=== PATIENT | female | born 1980 | race African-American/Black ===

== ENCOUNTER 2016-08-05 09:59 | Emergency (ER) | payer OTHER ==
[~2016-08-05 09:59] MED LIST: AMLO2.5T PO; BUTA1CAP29 PO; HYDR-2666 PO; IBUP-1060 PO; LIDO20SO PO; LOSA25TA4 PO; SULF1TAB24 PO
[2016-08-05 10:30] VITALS: BP 120/92
[2016-08-05] MEDS ORDERED: NAPROXEN 500 MG TABLET PO STA (10:51)
[2016-08-05] MEDS ORDERED: CYCLOBENZAPRINE 10 MG TABLET. PO ONE (11:00)
[2016-08-05] MEDS ORDERED: HYDROCODONE/APAP 5/325MG TABLET. PO ONE (11:00)
[2016-08-05] MEDS ORDERED: TRAM-29 PO (11:07)
[2016-08-05] MEDS ORDERED: METH-37 PO (11:07)
[2016-08-05] MEDS ORDERED: CLIN-44 PO (11:07)
--- NOTE | 2016-08-05 11:08 | PHYS DOC ---
Past Medical History Past Medical History: COPD, Hypertension Additional Past Medical Histor: head injury Past Surgical History: Knee Replacement Additional Past Surgical Histo: bilat knee scope Alcohol Use: Occasionally Drug Use: None Adult General Chief Complaint Chief Complaint: LOWER EXT PAIN HPI HPI Patient is a 36 year old female with history of COPD and hypertension who presents today with pain radiating to the right lower extremity. Patient states the pain starts from the mid thigh into the toes. Patient denies any known injury. Denies any history of sciatica she is a very poor historian, i could barely understand why she came to the ED because she keeps jumping from one idea to the other, she appears intoxicated. She is a states she has moderate right knee pain. Patient denies any known injury. Patient is also complaining of gum swelling or redness from unknown amount of days. Patient appears intoxicated. She is requesting pain medicine and states she does not want any testing. Review of Systems Review of Systems Constitutional: Denies fever or chills [] Eyes: Denies change in visual acuity, redness, or eye pain [] HENT: Right upper gum swelling Respiratory: Denies cough or shortness of breath [] Cardiovascular: No additional information not addressed in HPI [] GI: Denies abdominal pain, nausea, vomiting, bloody stools or diarrhea [] : Denies dysuria or hematuria [] Musculoskeletal: Right knee and right lower extremity pain Integument: Denies rash or skin lesions [] Neurologic: Denies headache, focal weakness or sensory changes [] Endocrine: Denies polyuria or polydipsia [] Current Medications Current Medications Current Medications Medications (Trade) Dose Ordered Sig/[facility] Start Time Stop Time Status Last Admin Dose Admin Acetaminophen/ Hydrocodone Bitart (Lortab 5/325) 2 tab 1X ONCE 08/05/16 11:00 08/05/16 11:01 UNV Cyclobenzaprine HCl (Flexeril) 10 mg 1X ONCE 08/05/16 11:00 08/05/16 11:01 UNV Naproxen (Naprosyn) 500 mg 1X STAT 08/05/16 10:51 08/05/16 10:52 UNV Allergies Allergies Allergies Coded Allergies Type Severity Reaction Last Updated Verified Penicillins Adverse Reaction Intermediate nausea 04/26/14 Yes Physical Exam Physical Exam Constitutional: Well developed, well nourished, no acute distress, non-toxic appearance. [] HENT: Normocephalic, atraumatic, bilateral external ears normal, oropharynx moist, no oral exudates, nose normal. [] Right upper gum approximately at tooth #2-4 with a tiny indurated area consistent with a dental abscess. The area is erythematous and very tender to palpate. Eyes: PERRLA, EOMI, conjunctiva normal, no discharge. [] Neck: Normal range of motion, no tenderness, supple, no stridor. [] Cardiovascular:Heart rate regular rhythm, no murmur [] Lungs & Thorax: Bilateral breath sounds clear to auscultation [] Abdomen: Bowel sounds normal, soft, no tenderness, no masses, no pulsatile masses. [] Skin: Warm, dry, no erythema, no rash. [] Back: No tenderness, no CVA tenderness. [] Extremities: Right lower extremity with no obvious edema and obvious ecchymosis. She is diffusely tender from the mid thigh to her toes. Positive right leg straight raises. +2 right pedal pulse. Cap refill is less than 2 seconds the right lower extremity. Full range of motion to the right knee, negative Jaylene sign and negative Denis's sign negative anterior-posterior drawer sign to the right knee. Neurologic: Alert and oriented X 3, normal motor function, normal sensory function, no focal deficits noted. [] Psychologic: Affect normal, judgement normal, mood normal. [] EKG EKG [] Radiology/Procedures Radiology/Procedures [] Course & Med Decision Making Course & Med Decision Making Pertinent Labs and Imaging studies reviewed. (See chart for details) This is a very poor historian who presents to the ED for dental abscess, right lower extremity pain consistent with sciatica. She also has right knee pain. No known injury. Offered patient radiologist studies for her knee. Patient appears intoxicated and said no. She would like something for pain. I discharged her with Ultram, Robaxin and clindamycin for the dental infection. F/u with her PCP and dentist next week. Dragon Disclaimer Dragon Disclaimer This electronic medical record was generated, in whole or in part, using a voice recognition dictation system. Departure Departure Impression: Primary Impression: Knee pain, right Additional Impressions: Sciatic leg pain Dental abscess Disposition: 01 HOME, SELF-CARE Condition: STABLE Referrals: NO PCP (PCP) Follow-up with your own primary care doctor or dentist as soon as possible. Patient Instructions: Dental Abscess, Knee Pain, Sciatica Additional Instructions: You were seen for dental abscess, right knee, sciatic pain, and a dental abscess. Complete your antibiotics. Take the prescribed medicines as needed for pain. Follow-up with your own doctor or dentist as soon as possible. Scripts Clindamycin Hcl 150 Mg Capsule3 Cap PO TID #90 CAP Prov:CYNTHIA THOMPSON APRN 08/05/16 Tramadol Hcl (Ultram)50 Mg Tablet1 Tab PO Q6HRS #30 TAB Prov:CYNTHIA THOMPSON APRN 08/05/16 Methocarbamol (Robaxin)500 Mg Tablet1 Tab PO TID #30 TAB Prov:CYNTHIA THOMPSON APRN 08/05/16 Problem Qualifiers Primary Impression: Knee pain, right Chronicity: acute Qualified Code: M25.561 - Pain in right knee CYNTHIA THOMPSON APRN Aug 05, 2016 11:08
== END 2016-08-05 11:54 | disposition home or self-care (01) ==
LOC: ER 09:59
DX: M54.30 Sciatica, unspecified side (principal); K04.7 Periapical abscess without sinus; J44.9 Chronic obstructive pulmonary disease, unspecified; I10 Essential (primary) hypertension; Z96.659 Presence of unspecified artificial knee joint; Z88.0 Allergy status to penicillin
CPT/HCPCS: 99284

== ENCOUNTER 2017-10-08 11:59 | Emergency (ER) | payer OTHER ==
[2017-10-08] MEDS: IBUPROFEN 600 MG TABLET. PO (12:42)
== END 2017-10-08 12:45 | disposition home or self-care (01) ==
LOC: ER 11:59
DX: K04.7 Periapical abscess without sinus (principal); J44.9 Chronic obstructive pulmonary disease, unspecified; I10 Essential (primary) hypertension; Z88.0 Allergy status to penicillin
CPT/HCPCS: 99283

== ENCOUNTER 2018-04-27 13:44 | Emergency (ER) | payer OTHER ==
[~2018-04-27] VITALS: Ht 160 cm; Wt 74.4 kg
[~2018-04-27 13:44] MED LIST changes: -AMLO2.5T PO; +AMLO2.5T3 PO; +CLIN150C14 PO; +CLIN300C8 PO; -HYDR-2666 PO; +HYDR-2758 PO; -LOSA25TA4 PO; +LOSA25TA5 PO; +METH-37 PO; +NAPR-683 PO; +TRAM-48 PO
[2018-04-27 14:10] VITALS: BP 123/78
[2018-04-27] MEDS ORDERED: LIDOCAINE WITH 8.4% SOD BICARB 3 ML DISP.SYRIN. INJ ONE (14:30)
[2018-04-27] MEDS ORDERED: DIPHTH,PERTUSS(ACELL),TET TOX 0.5 ML DISP.SYRIN. VAX IM ONE (14:30)
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
[2018-04-27] MEDS ORDERED: CEPH500T PO (15:04)
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
== END 2018-04-27 15:30 | disposition home or self-care (01) ==
LOC: ER 13:44
DX: S51.811A Laceration without foreign body of right forearm, initial encounter (principal); S61.511A Laceration without foreign body of right wrist, initial encounter; I10 Essential (primary) hypertension; J44.9 Chronic obstructive pulmonary disease, unspecified; Z88.0 Allergy status to penicillin; W26.8XXA Contact with other sharp object(s), not elsewhere classified, initial encounter; Y93.89 Activity, other specified; Y92.89 Other specified places as the place of occurrence of the external cause; Y99.8 Other external cause status
CPT/HCPCS: 12002; 73090; 90471; 90715; 99284

== ENCOUNTER 2018-05-07 21:36 | Emergency (ER) | payer OTHER ==
[~2018-05-07] VITALS: Ht 165.1 cm; Wt 74.4 kg
[~2018-05-07 21:36] MED LIST changes: +CEPH500T PO
[2018-05-07] MEDS ORDERED: IV NORMAL SALINE 1000ML BAG 1,000 ML IV ONE (22:15)
[2018-05-07] MEDS: IPRATRPIUM/ALBUTEROL 0.5/2.5MG 3 ML NEBU. NEB ONE (22:37)
[2018-05-07] MEDS: DEXAMETHASONE SOD PHOS 20 MG/5 ML VIAL. IV ONE (22:49)
[2018-05-07] MEDS: BENZONATATE 100 MG CAPSULE. PO ONE (22:49)
[2018-05-07] MEDS: KETOROLAC 30 MG/ML VIAL. IV ONE (22:49)
[2018-05-07] MEDS: ONDANSETRON PF 4 MG/2 ML VIAL. IV ONE (22:49)
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
[2018-05-07 23:29] LABS: BASO % 1 % (0-3); EOS # 0.1 x10^3/uL (0.0-0.7); EOS % 2 % (0-3); HEMATOCRIT 40.3 % (36.0-47.0); LYMPH # 1.1 x10^3/uL (1.0-4.8); LYMPH % 24 % (24-48); MEAN CORPUSCULAR HEMOGLOBIN 36 pg (25-35); MEAN CORPUSCULAR HGB CONC 35 g/dL (31-37); MEAN CORPUSCULAR VOLUME 105 fL (79-100); MONO # 0.5 x10^3/uL (0.0-1.1); MONO % 12 % (0-9); NEUT # 2.8 x10^3uL (1.8-7.7); NEUT % 62 % (31-73); PLATELET COUNT 188 x10^3/uL (140-400); RED BLOOD COUNT 3.86 x10^6/uL (3.50-5.40); RED CELL DISTRIBUTION WIDTH 13.6 % (11.5-14.5); WHITE BLOOD COUNT 4.5 x10^3/uL (4.0-11.0)
[2018-05-07 23:39] LABS: CALCIUM 9.1 mg/dL (8.5-10.1); CREATININE 0.7 mg/dL (0.6-1.0); GFR 113.9; POTASSIUM 4.1 mmol/L (3.5-5.1)
[2018-05-07 23:45] LABS: ALBUMIN 3.3 g/dL (3.4-5.0); ALBUMIN/GLOBULIN RATIO 0.9 (1.0-1.7); C-REACTIVE PROTEIN 4.6 mg/L (0-3.3); TOTAL BILIRUBIN 0.3 mg/dL (0.2-1.0); TOTAL PROTEIN 7.1 g/dL (6.4-8.2)
[2018-05-08] VITALS: BP 135/98
[2018-05-08 00:25] LABS: BILIRUBIN,URINE NEGATIVE (NEG); CLARITY,URINE CLEAR; COLOR,URINE YELLOW; NITRITE,URINE NEGATIVE (NEG); PROTEIN,URINE NEGATIVE (NEG-TRACE)
[2018-05-08 00:32] LABS: BACTERIA,URINE 0 /HPF (0-FEW); SQUAMOUS EPITHELIAL CELL,UR MOD /LPF; WBC,URINE OCC /HPF (0-4)
[2018-05-08 00:35] LABS: BARBITURATES NEG (NEG); BENZODIAZEPINES POS (NEG); CANNABINOIDS NEG (NEG); COCAINE POS (NEG); METHADONE NEG (NEG); OPIATES NEG (NEG); PHENCYCLIDINE POS (NEG)
[2018-05-08 00:38] LABS: AMPHETAMINE/METHAMPHETAMINE NEG (NEG)
[2018-05-08] MEDS ORDERED: CYCL10TA2 PO (00:51)
[2018-05-08] MEDS ORDERED: BENZ100C PO (00:51)
[2018-05-08] MEDS ORDERED: DICL50TA4 PO (00:51)
[2018-05-08] MEDS ORDERED: VENTOLIN HFA18 GM INH (00:51)
[2018-05-08] MEDS ORDERED: PRED50TA PO (00:51)
--- NOTE | 2018-05-08 07:47 | RAD ---
Lumbar spine, 3 views, 05/08/2018: HISTORY: Low back pain The lumbar vertebral heights are well-maintained. There are minimal scattered marginal spurs. There are mild sclerotic changes involving facet joints in the lower lumbar spine, particularly on the right at L4-5. No fracture or dislocation is identified. The paraspinous soft tissues are unremarkable. Surgical clips are noted in the right lower quadrant of the abdomen. IMPRESSION: 1. Mild degenerative change. 2. No acute bony abnormality is detected. Electronically signed by: Devendra Guerrier MD (05/08/2018 7:44 AM) [facility]
--- NOTE | 2018-05-08 07:48 | RAD ---
AP chest, 05/08/2018: HISTORY: Cough The heart size is normal. The lungs are clear. There is no evidence of pleural fluid. IMPRESSION: No acute cardiopulmonary abnormality is detected. Electronically signed by: Devendra Guerrier MD (05/08/2018 7:44 AM) [facility]
== END 2018-05-08 02:00 | disposition home or self-care (01) ==
LOC: ER 21:36
DX: J40 Bronchitis, not specified as acute or chronic (principal); M54.41 Lumbago with sciatica, right side; F17.200 Nicotine dependence, unspecified, uncomplicated; I10 Essential (primary) hypertension; J44.9 Chronic obstructive pulmonary disease, unspecified; F10.20 Alcohol dependence, uncomplicated; Z88.0 Allergy status to penicillin
CPT/HCPCS: 36415; 71045; 72100; 80053; 80307; 81001; 81025; 85025; 85651; 86140; 94640; 96374; 96375; 99285; G0480; J1100; J1885; J2405; J7620; G0479

== ENCOUNTER 2018-09-18 07:45 | Emergency (ER) | payer SELFPAY ==
[~2018-09-18] VITALS: Ht 160 cm; Wt 74.4 kg
[~2018-09-18 07:45] MED LIST changes: -AMLO2.5T3 PO; +AMLO2.5T5 PO; +BENZ100C PO; +CYCL10TA2 PO; +DICL50TA4 PO; -HYDR-2758 PO; +HYDR-2761 PO; -LOSA25TA5 PO; +LOSA25TA54 PO; +PRED50TA PO; +VENTOLIN HFA18 GM INH
--- NOTE | 2018-09-18 08:07 | PHYS DOC ---
Past Medical History Past Medical History: COPD, Hypertension Additional Past Medical Histor: head injury; drug use Past Surgical History: Knee Replacement Additional Past Surgical Histo: bilat knee scope Alcohol Use: Heavy Drug Use: Cocaine Adult General Chief Complaint Chief Complaint: MULTIPLE COMPLAINTS HPI HPI 38-year-old female presenting to the emergency department today with cough and toothache. Her cough is been present for 2-3 days. it is a nonproductive hacking cough. She has had a toothache for many months. It is in her right upper tooth. She denies tongue swelling drooling or difficulty breathing. She denies unilateral leg swelling hemoptysis or history of blood clot. Review of systems is negative for chest pain abdominal pain nausea vomiting diaphoresis fevers or chills. All other review of systems is negative unless otherwise noted in history of present illness. ED course: 38-year-old female presenting to the emergency department today with cough and toothache. Patient is well-appearing on examination here. Vitals unremarkable. Workup here is unremarkable. EKG obtained and reviewed by myself shows sinus rhythm with a regular rate. ST segments congruent. Not suggestive of ACS. We will give her oral clindamycin for her dental pain and refer her to a dentist. We will also refer her to her primary care physician for further treatment and care within 1-2 days.The patient has been examined and was not found to have an emergency medical condition. The patient was then discharged home in stable condition to follow up with their primary care physician over the next 1-2 days. They were to return if their symptoms worsened or if they were concerned for any reason. They were also instructed to return to the emergency department if they were unable to get the recommended and appropriate follow-up. [id number] discharge instructions and return precautions were given. Patient's questions were answered to their satisfaction. Patient is comfortable with plan. Review of Systems Review of Systems SEE ABOVE. Current Medications Current Medications Current Medications Medications (Trade) Dose Ordered Sig/Michael Start Time Stop Time Status Last Admin Dose Admin Albuterol/ Ipratropium (Duoneb) 3 ml 1X ONCE 09/18/18 08:15 09/18/18 08:16 DC Allergies Allergies Allergies Coded Allergies Type Severity Reaction Last Updated Verified Penicillins Adverse Reaction Intermediate nausea 04/26/14 Yes Physical Exam Physical Exam SEE ABOVE Constitutional: Well developed, well nourished, no acute distress, non-toxic appearance. HENT: Normocephalic, atraumatic, bilateral external ears normal, oropharynx moist, no oral exudates, nose normal. Pt has poor dentition without abscess. Eyes: PERRLA, EOMI, conjunctiva normal, no discharge. Neck: Normal range of motion, no tenderness, supple, no stridor. Cardiovascular:Heart rate regular rhythm, no murmur Lungs & Thorax: Bilateral breath sounds clear to auscultation . no Abdomen: Bowel sounds normal, soft, no tenderness, no masses, no pulsatile masses. Skin: Warm, dry, no erythema, no rash. [] Back: No tenderness, no CVA tenderness. Extremities: No tenderness, no cyanosis, no clubbing, ROM intact, no edema. [] Neurologic: Alert and oriented X 3, normal motor function, normal sensory function, no focal deficits noted. Psychologic: Affect normal, judgement normal, mood normal. [] Current Patient Data Vital Signs Vital Signs Date Time Temp Pulse Resp B/P (MAP) Pulse Ox O2 Delivery O2 Flow Rate FiO2 09/18/18 09:00 73 19 132/63 (86) 99 Room Air 09/18/18 07:50 98.7 98.7 Lab Values Laboratory Tests Test 09/18/18 08:27 09/18/18 09:00 09/18/18 09:04 White Blood Count 5.1 x10^3/uL (4.0-11.0) Red Blood Count 4.02 x10^6/uL (3.50-5.40) Hemoglobin 13.4 g/dL (12.0-15.5) Hematocrit 40.3 % (36.0-47.0) Mean Corpuscular Volume 100 fL (79-100) Mean Corpuscular Hemoglobin 33 pg (25-35) Mean Corpuscular Hemoglobin Concent 33 g/dL (31-37) Red Cell Distribution Width 13.9 % (11.5-14.5) Platelet Count 228 x10^3/uL (140-400) Neutrophils (%) (Auto) 59 % (31-73) Lymphocytes (%) (Auto) 27 % (24-48) Monocytes (%) (Auto) 9 % (0-9) Eosinophils (%) (Auto) 4 % (0-3) H Basophils (%) (Auto) 1 % (0-3) Neutrophils # (Auto) 3.0 x10^3uL (1.8-7.7) Lymphocytes # (Auto) 1.4 x10^3/uL (1.0-4.8) Monocytes # (Auto) 0.5 x10^3/uL (0.0-1.1) Eosinophils # (Auto) 0.2 x10^3/uL (0.0-0.7) Basophils # (Auto) 0.0 x10^3/uL (0.0-0.2) Sodium Level 137 mmol/L (136-145) Potassium Level 4.0 mmol/L (3.5-5.1) Chloride Level 103 mmol/L (98-107) Carbon Dioxide Level 24 mmol/L (21-32) Anion Gap 10 (6-14) Blood Urea Nitrogen 12 mg/dL (7-20) Creatinine 0.7 mg/dL (0.6-1.0) Estimated GFR (Cockcroft-Gault) 113.3 BUN/Creatinine Ratio 17 (6-20) Glucose Level 106 mg/dL (70-99) H Calcium Level 9.1 mg/dL (8.5-10.1) Total Bilirubin 0.5 mg/dL (0.2-1.0) Aspartate Amino Transferase (AST) 14 U/L (15-37) L Alanine Aminotransferase (ALT) 19 U/L (14-59) Alkaline Phosphatase 62 U/L (46-116) Troponin I Quantitative < 0.017 ng/mL (0.000-0.055) Total Protein 7.1 g/dL (6.4-8.2) Albumin 3.6 g/dL (3.4-5.0) Albumin/Globulin Ratio 1.0 (1.0-1.7) Lipase 121 U/L (73-393) Serum Test, Qualitative Negative (NEG) Urine Collection Type Unknown Urine Color Yellow Urine Clarity Clear Urine pH 6.5 Urine Specific [place] 1.020 Urine Protein Negative mg/dL (NEG-TRACE) Urine Glucose (UA) Negative mg/dL (NEG) Urine Ketones (Stick) Negative mg/dL (NEG) Urine Blood Negative (NEG) Urine Nitrite Negative (NEG) Urine Bilirubin Negative (NEG) Urine Urobilinogen Dipstick 0.2 mg/dL (0.2 mg/dL) Urine Leukocyte Esterase Negative (NEG) Urine RBC 1-2 /HPF (0-2) Urine WBC Occ /HPF (0-4) Urine Squamous Epithelial Cells Mod /LPF Urine Bacteria 0 /HPF (0-FEW) Urine Mucus Mod /LPF POC Urine HCG, Qualitative Hcg negative (Negative) Laboratory Tests 09/18/18 08:27 Laboratory Tests 09/18/18 08:27 EKG EKG [] Radiology/Procedures Radiology/Procedures [] Course & Med Decision Making Course & Med Decision Making Pertinent Labs and Imaging studies reviewed. (See chart for details) [] Dragon Disclaimer Dragon Disclaimer This electronic medical record was generated, in whole or in part, using a voice recognition dictation system. Departure Departure Impression: Primary Impression: Cough Additional Impression: Drug-seeking behavior Disposition: HOME, SELF-CARE Condition: STABLE Referrals: NO PCP (PCP) Patient Instructions: Cough, Adult Additional Instructions: Thank you for allowing us to participate in your care today. Return to the emergency department you have any new or worsening symptoms, or if you are concerned for any reason. Return to emergency department if you have any new or concerning symptoms including but not limited to fever, chills, nausea, vomiting, intractable pain, any new rashes, chest pain, shortness of air , uncontrolled bleeding, difficulty breathing, and/or vision loss. Follow up with your primary care physician within 1-2 days. Call your Primary Doctor tomorrow and inform them of your visit today. If you do not have a primary care provider we are happy to provide you with a list of our primary care providers contact information. This condition should be evaluated by your primary care physician and any recommended consulting services for continued management within 2 days after discharge. If at any time, you are having difficulty getting into your primary care doctor or a specialist, return to the emergency department. Scripts Clindamycin Hcl (CLINDAMYCIN HCL) 300 Mg Capsule 1 CAP PO TID, #21 CAP Prov: YASMEEN VARNER MD 09/18/18 Problem Qualifiers YASMEEN VARNER MD Sep 18, 2018 08:07
[2018-09-18] MEDS ORDERED: IPRATRPIUM/ALBUTEROL 0.5/2.5MG 3 ML NEBU. NEB ONE (08:15)
[2018-09-18 08:45] LABS: BASO % 1 % (0-3); EOS # 0.2 x10^3/uL (0.0-0.7); EOS % 4 % (0-3); HEMATOCRIT 40.3 % (36.0-47.0); HEMOGLOBIN 13.4 g/dL (12.0-15.5); LYMPH # 1.4 x10^3/uL (1.0-4.8); LYMPH % 27 % (24-48); MEAN CORPUSCULAR HEMOGLOBIN 33 pg (25-35); MEAN CORPUSCULAR HGB CONC 33 g/dL (31-37); MEAN CORPUSCULAR VOLUME 100 fL (79-100); MONO # 0.5 x10^3/uL (0.0-1.1); MONO % 9 % (0-9); NEUT % 59 % (31-73); PLATELET COUNT 228 x10^3/uL (140-400); RED BLOOD COUNT 4.02 x10^6/uL (3.50-5.40); RED CELL DISTRIBUTION WIDTH 13.9 % (11.5-14.5); WHITE BLOOD COUNT 5.1 x10^3/uL (4.0-11.0)
[2018-09-18 09:12] LABS: CALCIUM 9.1 mg/dL (8.5-10.1); CREATININE 0.7 mg/dL (0.6-1.0); GFR 113.3
[2018-09-18 09:17] LABS: BILIRUBIN,URINE NEGATIVE (NEG); CLARITY,URINE CLEAR; COLOR,URINE YELLOW; NITRITE,URINE NEGATIVE (NEG); PH,URINE 6.5; PROTEIN,URINE NEGATIVE (NEG-TRACE); UROBILINOGEN,URINE 0.2 mg/dL (0.2 mg/dL)
[2018-09-18 09:18] LABS: ALBUMIN 3.6 g/dL (3.4-5.0); TOTAL BILIRUBIN 0.5 mg/dL (0.2-1.0); TOTAL PROTEIN 7.1 g/dL (6.4-8.2)
[2018-09-18 09:21] LABS: PREG TEST PT QUAL NEGATIVE (NEG)
--- NOTE | 2018-09-18 09:31 | RAD ---
EXAM: Chest, 2 views. HISTORY: Cough. COMPARISON: 05/08/2018 FINDINGS: 2 views of the chest are obtained. There is no infiltrate, pleural effusion or pneumothorax. The heart is normal in size. IMPRESSION: No acute pulmonary finding. Electronically signed by: Claudia Nation MD (09/18/2018 9:28 AM) [facility]
[2018-09-18 09:36] LABS: BACTERIA,URINE 0 /HPF (0-FEW); SQUAMOUS EPITHELIAL CELL,UR MOD /LPF
[2018-09-18 09:37] LABS: WBC,URINE OCC /HPF (0-4)
[2018-09-18] MEDS ORDERED: CLIN300C8 PO (09:54)
[2018-09-18 10:00] VITALS: BP 130/89
--- NOTE | 2018-09-21 14:04 | EKG ---
[facility] [address] [place] [address] Test Date: 2018-09-18 Test Time: 08:35:19 Pat Name: HERBIE DIOR Department: Room: Gender: [employer]ing [employer] Operator: : 1980 Requested By: YASMEEN VARNER Order Number: [id number] Reading MD: Brad Nevarez Measurements Intervals [place] Rate: P: AR: QRS: QRSD: T: QT: QTc: Interpretive Statements SINUS RHYTHM NON SPECIFIC ST/T CHANGES Electronically Signed On 09-23-2018 8:41:03 [employer] by Brad Nevarez
== END 2018-09-18 10:30 | disposition home or self-care (01) ==
LOC: ER 07:45
DX: R05 Cough (principal); Z76.5 Malingerer [conscious simulation]; K08.89 Other specified disorders of teeth and supporting structures; J44.9 Chronic obstructive pulmonary disease, unspecified; I10 Essential (primary) hypertension; F10.20 Alcohol dependence, uncomplicated; Y90.9 Presence of alcohol in blood, level not specified; Z96.653 Presence of artificial knee joint, bilateral
CPT/HCPCS: 36415; 71046; 80053; 81001; 81025; 83690; 84484; 84703; 85025; 93005; 94640; 99284-25

== ENCOUNTER 2019-02-03 11:01 | Emergency (ER) | payer OTHER ==
[~2019-02-03] VITALS: Ht 160 cm; Wt 81.2 kg
[2019-02-03 11:25] VITALS: BP 132/87
[2019-02-03] MEDS ORDERED: CYCL10TA2 PO (12:18)
--- NOTE | 2019-02-03 12:18 | PHYS DOC ---
Past Medical History Past Medical History: Asthma, Bronchitis, COPD, Hypertension Additional Past Medical Histor: head injury; drug use, sciatica Past Surgical History: Appendectomy, Knee Replacement Additional Past Surgical Histo: bilat knee scope Alcohol Use: Heavy Drug Use: Benzodiazepine, Cocaine, Opiates, Phencyclidine Adult General Chief Complaint Chief Complaint: HIP PAIN HPI HPI Patient is a 38 year old female presents with back pain has been ongoing for week. The patient states a week ago she was lifting boxes. The pain also shoots down the right leg. Has a history of sciatica. Rates her 10 his pain is 10 out of 10 in severity. Not tried any interventions at home. Review of Systems Review of Systems Constitutional: Denies fever or chills [] Eyes: Denies change in visual acuity, redness, or eye pain [] HENT: Denies nasal congestion or sore throat [] Respiratory: Denies cough or shortness of breath [] Cardiovascular: No additional information not addressed in HPI [] GI: Denies abdominal pain, nausea, vomiting, bloody stools or diarrhea [] : Denies dysuria or hematuria [] Musculoskeletal: Reports back pain or joint pain [] Integument: Denies rash or skin lesions [] Neurologic: Denies headache, focal weakness or sensory changes [] Endocrine: Denies polyuria or polydipsia [] Complete systems were reviewed and found to be within normal limits, except as documented in this note. Current Medications Current Medications Current Medications Medications (Trade) Dose Ordered Sig/Michael Start Time Stop Time Status Last Admin Dose Admin Cyclobenzaprine HCl (Flexeril) 10 mg 1X ONCE 02/03/19 12:30 02/03/19 12:31 DC 02/03/19 12:29 10 MG Ketorolac Tromethamine (Toradol 30mg Vial) 30 mg 1X ONCE 02/03/19 12:30 02/03/19 12:31 DC 02/03/19 12:29 30 MG Allergies Allergies Allergies Coded Allergies Type Severity Reaction Last Updated Verified Penicillins Adverse Reaction Intermediate nausea 04/26/14 Yes Physical Exam Physical Exam Constitutional: Well developed, well nourished, no acute distress, non-toxic appearance. [] HENT: Normocephalic, atraumatic, bilateral external ears normal, oropharynx moist, no oral exudates, nose normal. [] Eyes: PERRLA, EOMI, conjunctiva normal, no discharge. [] Neck: Normal range of motion, no tenderness, supple, no stridor. [] Cardiovascular:Heart rate regular rhythm, no murmur [] Lungs & Thorax: Bilateral breath sounds clear to auscultation [] Abdomen: Bowel sounds normal, soft, no tenderness, no masses, no pulsatile masses. [] Skin: Warm, dry, no erythema, no rash. [] Back: Tenderness to left lower back, no spinal tenderness, no CVA tenderness. [] Extremities: No tenderness, no cyanosis, no clubbing, ROM intact, no edema. [] Neurologic: Alert and oriented X 3, normal motor function, normal sensory function, no focal deficits noted. [] Psychologic: Affect normal, judgement normal, mood normal. [] Current Patient Data Vital Signs Vital Signs Date Time Temp Pulse Resp B/P (MAP) Pulse Ox O2 Delivery O2 Flow Rate FiO2 02/03/19 11:25 98.4 91 18 132/87 (102) 98 Room Air 98.4 Lab Values Laboratory Tests Test 02/03/19 12:30 Urine Collection Type Unknown Urine Color Anali Urine Clarity Clear Urine pH 6.0 Urine Specific [place] >=1.030 Urine Protein Negative mg/dL (NEG-TRACE) Urine Glucose (UA) Negative mg/dL (NEG) Urine Ketones (Stick) Trace mg/dL (NEG) Urine Blood Negative (NEG) Urine Nitrite Negative (NEG) Urine Bilirubin Small (NEG) Urine Urobilinogen Dipstick 1.0 mg/dL (0.2 mg/dL) Urine Leukocyte Esterase Moderate (NEG) Urine RBC 3-5 /HPF (0-2) Urine WBC 5-10 /HPF (0-4) Urine Squamous Epithelial Cells Mod /LPF Urine Bacteria Few /HPF (0-FEW) EKG EKG [] Radiology/Procedures Radiology/Procedures [] Course & Med Decision Making Course & Med Decision Making Pertinent Labs and Imaging studies reviewed. (See chart for details) Patient request UA to rule out UTI. Will order UA and Flexeril/Toradol. Appears to be sciatica. Urine shows UTI will also place on Keflex. Dragon Disclaimer Dragon Disclaimer This electronic medical record was generated, in whole or in part, using a voice recognition dictation system. Departure Departure Impression: Primary Impression: Sciatica Additional Impression: Urinary tract infection Disposition: 01 HOME, SELF-CARE Condition: STABLE Referrals: NO PCP (PCP) Patient Instructions: Sciatica, Urinary Tract Infection Additional Instructions: Thank you for visiting [facility]. We appreciate you trusting us with your care. If any additional problems come up don't hesitate to return to visit us. Please follow up with your primary care provider so they can plan additional care if needed and know about the problem that you had. If symptoms worsen come back to the Emergency Department. Any concerning symptoms that start such as chest pain, shortness of Air, weakness or numbness on one side of the body, running high fevers or any other concerning symptoms return to the ER. Scripts Cephalexin (KEFLEX) 500 Mg Capsule 1 CAP PO BID for 7 Days, #14 CAP Prov: EDSON MENSAH APRN 02/03/19 Cyclobenzaprine Hcl (CYCLOBENZAPRINE HCL) 10 Mg Tablet 1 TAB PO TID PRN for MUSCLE SPASMS, #30 TAB Prov: EDSON MENSAH APRN 02/03/19 Problem Qualifiers Primary Impression: Sciatica Laterality: right Qualified Codes: M54.31 - Sciatica, right side Additional Impression: Urinary tract infection Urinary tract infection type: acute cystitis Hematuria presence: without hematuria Qualified Codes: N30.00 - Acute cystitis without hematuria EDSON MENSAH APRN Feb 03, 2019 12:18
[2019-02-03] MEDS ORDERED: KETOROLAC 30 MG/ML VIAL. IM ONE (12:30)
[2019-02-03] MEDS ORDERED: CYCLOBENZAPRINE 10 MG TABLET. PO ONE (12:30)
[2019-02-03 12:46] LABS: BILIRUBIN,URINE SMALL (NEG); CLARITY,URINE CLEAR; COLOR,URINE AMBER; NITRITE,URINE NEGATIVE (NEG); PROTEIN,URINE NEGATIVE (NEG-TRACE)
[2019-02-03 13:27] LABS: SQUAMOUS EPITHELIAL CELL,UR MOD /LPF
[2019-02-03 13:31] LABS: BACTERIA,URINE FEW /HPF (0-FEW)
[2019-02-03] MEDS ORDERED: CEPH-264 PO (13:34)
[2019-02-03 13:35] LABS: RBC,URINE 0 /HPF (0-2)
== END 2019-02-03 13:45 | disposition home or self-care (01) ==
LOC: ER 11:01
DX: N30.00 Acute cystitis without hematuria (principal); M54.41 Lumbago with sciatica, right side; J44.9 Chronic obstructive pulmonary disease, unspecified; I10 Essential (primary) hypertension; Z90.89 Acquired absence of other organs; Z96.653 Presence of artificial knee joint, bilateral; F10.20 Alcohol dependence, uncomplicated; Y90.9 Presence of alcohol in blood, level not specified; Z88.0 Allergy status to penicillin
CPT/HCPCS: 81001; 87086; 96372; 99284; J1885

== ENCOUNTER 2019-04-13 10:59 | Emergency (ER) | payer OTHER ==
[~2019-04-13] VITALS: Ht 172.7 cm; Wt 81.2 kg
[~2019-04-13 10:59] MED LIST changes: +CEPH-264 PO
[2019-04-13 11:45] VITALS: BP 128/83
[2019-04-13] MEDS ORDERED: IBUPROFEN 400 MG TABLET. PO ONE (12:15)
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
--- NOTE | 2019-04-13 13:30 | RAD ---
ANKLE RIGHT 3V, FOOT RIGHT 3V History: Right ankle an foot pain. Technique: 3 views right ankle and 3 views right foot Comparison: None. Findings: Normal alignment. Symmetric ankle mortise. Ossification inferior to the medial malleolus, may relate to prior trauma. No acute fracture. Lateral ankle soft tissue swelling. Small plantar calcaneal spur. Os trigonum. Impression: 1. No acute osseous abnormality. Lateral ankle soft tissue spine. 2. Well-corticated ossification inferior to the medial malleolus, likely related to prior trauma. Electronically signed by: Domenico Portillo DO (04/13/2019 1:27 PM) [facility]
[2019-04-13] MEDS ORDERED: IBUP-1007 PO (13:40)
== END 2019-04-13 14:02 | disposition home or self-care (01) ==
LOC: ER 10:59
DX: S93.601A Unspecified sprain of right foot, initial encounter (principal); S93.401A Sprain of unspecified ligament of right ankle, initial encounter; J44.9 Chronic obstructive pulmonary disease, unspecified; I10 Essential (primary) hypertension; Z96.653 Presence of artificial knee joint, bilateral; Z88.0 Allergy status to penicillin; V19.9XXA Pedal cyclist (driver) (passenger) injured in unspecified traffic accident, initial encounter; Y93.55 Activity, bike riding; Y92.828 Other wilderness area as the place of occurrence of the external cause; Y99.8 Other external cause status
CPT/HCPCS: 73610; 73630; 99284

== ENCOUNTER 2019-09-14 08:15 | Emergency (ER) | payer OTHER ==
[~2019-09-14] VITALS: Ht 160 cm; Wt 90.9 kg
[~2019-09-14 08:15] MED LIST changes: +IBUP-1007 PO
[2019-09-14] MEDS ORDERED: KETOROLAC 60 MG/2 ML VIAL. IM ONE (09:30)
--- NOTE | 2019-09-14 09:52 | PHYS DOC ---
Past Medical History Past Medical History: Anxiety, Asthma, Bronchitis, COPD, Depression, Hype rtension Additional Past Medical Histor: head injury; drug use, sciatica, INSOMNIA Past Surgical History: Appendectomy, Knee Replacement Additional Past Surgical Histo: bilat knee scope Smoking Status: Current Every Day Smoker Alcohol Use: Occasionally Drug Use: Benzodiazepine, Cocaine, Opiates, Phencyclidine Adult General Chief Complaint Chief Complaint: LOWER EXT PAIN HPI HPI Patient is a 39 year old male with history of anxiety and depression, hypertension, COPD, drug use who presents via EMS with complaint of right leg pain. Patient states she woke up at 1 AM because of severe right leg pain as a sharp pain from toes to above-knee and rated her pain 10 over 10. Patient denies injury, history of the same pain or DVT, focal neuro deficit states she took ibuprofen and gabapentin at 1 AM without change of her pain. Patient crying at arrival to ER. Patient has history of frequent emergency room visits and drug use. Review of Systems Review of Systems Constitutional: Denies fever or chills [] Eyes: Denies change in visual acuity, redness, or eye pain [] HENT: Denies nasal congestion or sore throat [] Respiratory: Denies cough or shortness of breath [] Cardiovascular: No additional information not addressed in HPI [] GI: Denies abdominal pain, nausea, vomiting, bloody stools or diarrhea [] : Denies dysuria or hematuria [] Musculoskeletal: Denies back pain, reports joint pain [] Integument: Denies rash or skin lesions [] Neurologic: Denies headache, focal weakness or sensory changes [] Endocrine: Denies polyuria or polydipsia [] All other systems were reviewed and found to be within normal limits, except as documented in this note. Current Medications Current Medications Current Medications Medications (Trade) Dose Ordered Sig/Michael Start Time Stop Time Status Last Admin Dose Admin Ketorolac Tromethamine (Toradol Im) 60 mg 1X ONCE 09/14/19 09:30 09/14/19 09:32 DC 09/14/19 09:51 60 MG Allergies Allergies Allergies Coded Allergies Type Severity Reaction Last Updated Verified Penicillins Adverse Reaction Intermediate nausea 04/26/14 Yes Physical Exam Physical Exam Constitutional: Well nourished, mild distress, non-toxic appearance. [] HENT: Normocephalic, atraumatic. Eyes: PERRLA, EOMI, conjunctiva normal, no discharge. [] Neck: Normal range of motion, no tenderness, supple, no stridor. [] Cardiovascular:Heart rate regular rhythm, no murmur [] Lungs & Thorax: Bilateral breath sounds clear to auscultation [] Skin: Warm, dry, no erythema, no rash. [] Back: No tenderness, no CVA tenderness. [] Extremities: Right lower extremity without deformity, change of color, edema, normal range of motion, normal popliteal, dorsalis pedis and tibialis posterior pulses, no tenderness, no cyanosis, no clubbing, ROM intact, no edema. [] Neurologic: Alert and oriented X 3, no focal deficits noted. [] Psychologic: Affect is anxious and agitated, judgement normal, mood normal. [] Current Patient Data Vital Signs Vital Signs Date Time Temp Pulse Resp B/P (MAP) Pulse Ox O2 Delivery O2 Flow Rate FiO2 09/14/19 10:46 88 119/76 (90) 97 Room Air 09/14/19 08:15 97.4 18 97.4 EKG EKG [] Radiology/Procedures Radiology/Procedures [facility] [address] [place] [address] IMAGING REPORT Signed PATIENT: HERBIE DIOR MACCOUNT: [id number] : 1980 LOCATION: ER AGE: 39 SEX: F EXAM STATUS: REG ER ORD. PHYSICIAN: KRISH CLEMENS MD REASON: pain PROCEDURE: VENOUS LOWER EXTREMITY RIGHT Examination: VENOUS LOWER EXTREMITY RIGHT History: Pain Comparison/Correlation: None RESULT: EXAMINATION: VENOUS LOWER EXTREMITY RIGHT FINDINGS: Right lower extremity duplex venous ultrasound exam was performed. Grayscale, color Doppler, and spectral Doppler imaging was performed. Compression and augmentation was performed. The right common femoral vein, superficial femoral vein, popliteal vein, and greater saphenofemoral junction are normal with no evidence of deep venous thrombus. Normal compressibility and augmentation is evident. Visualized right calf veins are unremarkable. IMPRESSION: Normal right lower extremity duplex ultrasound exam. No evidence of deep venous thrombus involving the right lower extremity. Electronically signed by: Jabari Perkins MD (09/14/2019 10:13 AM) [id number] DICTATED and SIGNED BY: JABARI PERKINS MD DATE: 09/14/19 1013 [facility] [address] [place], [place] [id number] IMAGING REPORT Signed PATIENT: HERBIE DIOR MACCOUNT: [id number] : 1980 LOCATION: ER AGE: 39 SEX: F EXAM STATUS: REG ER ORD. PHYSICIAN: KRISH CLEMENS MD REASON: pain from knee to ankle since this am. PROCEDURE: TIBIA FIBULA RIGHT Examination: TIBIA FIBULA RIGHT History: Pain Comparison/Correlation: None Findings: Frontal and lateral views of the right tibia and fibula were obtained. Moderate-sized joint effusion is present. Spurring about the patellofemoral compartment is present. Significant medial compartment narrowing is present with marked spurring. Spurring about the lateral compartment also is seen. Postoperative findings compatible with ACL reconstruction noted. Bony densities are present along the inferior aspect of the tibiofemoral joint of indeterminate significance. Small calcaneal spur is present. Possible mild narrowing at the medial aspect of the ankle joint mortise is questioned but this may alternatively be positional. Os trigonum is seen. Impression: Joint effusion. Severe medial compartment narrowing with spurring. Electronically signed by: Jabari Perkins MD (09/14/2019 9:50 AM) [id number] DICTATED and SIGNED BY: JABARI PERKINS MD DATE: 09/14/19 0950 Course & Med Decision Making Course & Med Decision Making Pertinent Imaging studies reviewed. (See chart for details) I've spoken with the patient and/or caregivers. I've explained the patient's condition, diagnosis and treatment plan based on information available to me at this time. I've answered the patient's and/or caregivers questions and addressed any concerns. The patient and/or caregivers have a good understanding the patient's diagnosis, condition and treatment plan as can be expected at this point. Vital signs have been stabilized. The patient's condition is stable for discharge from the emergency department. The patient will pursue further outpatient evaluation with her primary care provider or other designated consulting physician as outlined in the discharge instructions. Patient and/or caregivers are agreeable to this plan of care and follow-up instructions have been explained in detail. The patient and/or caregivers have received these instructions in written format and expressed understanding of these discharge instructions. The patient and her caregivers are aware that if any significant change in condition or worsening of symptoms should prompt him to immediately return to this of the closest emergency department. If an emergent department is not readily available I would encourage him to call 911. Dragon Disclaimer Dragon Disclaimer This electronic medical record was generated, in whole or in part, using a voice recognition dictation system. Departure Departure Impression: Primary Impression: Lower extremity pain Additional Impression: Anxiety about health Disposition: HOME, SELF-CARE (at 1039) Condition: STABLE Referrals: GRISELDA YOON MD (PCP) Patient Instructions: Muscle Strain Additional Instructions: Apply ice on the affected area Follow-up with your primary care physician in 3-5 days Return to ER if not getting better Current medication Thank you for visiting [facility]. We appreciate you trusting us with your care. If any additional problems come up don't hesitate to return to visit us. Please follow up with your primary care provider so they can plan additional care if needed and know about the problem that you had. If symptoms worsen come back to the Emergency Department. Any concerning symptoms that start such as chest pain, shortness of air, weakness or numbness on one side of the body, running high fevers or any other concerning symptoms return to the ER. Scripts [Percogesic] No Conflict Check 1 TAB PO QID PRN for PAIN, #14 Prov: KRISH CLEMENS MD 09/14/19 Problem Qualifiers Primary Impression: Lower extremity pain Laterality: right Qualified Codes: M79.604 - Pain in right leg KRISH CLEMENS MD Sep 14, 2019 09:52
--- NOTE | 2019-09-14 10:16 | RAD ---
Examination: VENOUS LOWER EXTREMITY RIGHT History: Pain Comparison/Correlation: None RESULT: EXAMINATION: VENOUS LOWER EXTREMITY RIGHT FINDINGS: Right lower extremity duplex venous ultrasound exam was performed. Grayscale, color Doppler, and spectral Doppler imaging was performed. Compression and augmentation was performed. The right common femoral vein, superficial femoral vein, popliteal vein, and greater saphenofemoral junction are normal with no evidence of deep venous thrombus. Normal compressibility and augmentation is evident. Visualized right calf veins are unremarkable. IMPRESSION: Normal right lower extremity duplex ultrasound exam. No evidence of deep venous thrombus involving the right lower extremity. Electronically signed by: Jabari Fitzgerald MD (09/14/2019 10:13 AM) [id number]
[2019-09-14] MEDS ORDERED: Percogesic PO (10:43)
[2019-09-14 10:46] VITALS: BP 119/76
== END 2019-09-14 10:58 | disposition home or self-care (01) ==
LOC: ER 08:15
DX: M79.604 Pain in right leg (principal); F41.9 Anxiety disorder, unspecified; J44.9 Chronic obstructive pulmonary disease, unspecified; I10 Essential (primary) hypertension; F17.200 Nicotine dependence, unspecified, uncomplicated; Z88.0 Allergy status to penicillin
CPT/HCPCS: 73590; 93971; 99284; J1885

== ENCOUNTER 2020-04-09 21:20 | Emergency (ER) | payer OTHER ==
[~2020-04-09] VITALS: Ht 167.6 cm; Wt 100.0 kg
[~2020-04-09 21:20] MED LIST changes: +Percogesic PO
[2020-04-09 21:45] VITALS: BP 176/112
[2020-04-09 22:22] LABS: BASO % 1 % (0-3); EOS # 0.2 x10^3/uL (0.0-0.7); EOS % 4 % (0-3); HEMOGLOBIN 12.4 g/dL (12.0-15.5); LYMPH # 1.8 x10^3/uL (1.0-4.8); LYMPH % 31 % (24-48); MEAN CORPUSCULAR HEMOGLOBIN 35 pg (25-35); MEAN CORPUSCULAR HGB CONC 35 g/dL (31-37); MEAN CORPUSCULAR VOLUME 101 fL (79-100); MONO # 0.4 x10^3/uL (0.0-1.1); MONO % 7 % (0-9); NEUT # 3.5 x10^3/uL (1.8-7.7); NEUT % 58 % (31-73); PLATELET COUNT 185 x10^3/uL (140-400); RED BLOOD COUNT 3.56 x10^6/uL (3.50-5.40); RED CELL DISTRIBUTION WIDTH 14.3 % (11.5-14.5)
[2020-04-09 22:26] LABS: BILIRUBIN,URINE NEGATIVE (NEG); CLARITY,URINE CLEAR; COLOR,URINE YELLOW; NITRITE,URINE NEGATIVE (NEG); PH,URINE 6.5 (<5.0-8.0); PROTEIN,URINE NEGATIVE (NEG-TRACE)
[2020-04-09 22:30] LABS: AMPHETAMINE/METHAMPHETAMINE NEG (NEG); BARBITURATES NEG (NEG); BENZODIAZEPINES NEG (NEG); CANNABINOIDS NEG (NEG); COCAINE POS (NEG); METHADONE NEG (NEG); OPIATES NEG (NEG); PHENCYCLIDINE POS (NEG)
[2020-04-09 22:32] LABS: CALCIUM 8.5 mg/dL (8.5-10.1); CREATININE 0.8 mg/dL (0.6-1.0); GFR 96.6; POTASSIUM 3.3 mmol/L (3.5-5.1)
[2020-04-09 22:34] LABS: BACTERIA,URINE MODERATE /HPF (0-FEW); SQUAMOUS EPITHELIAL CELL,UR MANY /LPF
[2020-04-09 22:35] LABS: RBC,URINE OCC /HPF (0-2); WBC,URINE RARE /HPF (0-4)
--- NOTE | 2020-04-09 22:36 | PHYS DOC ---
Past Medical History Past Medical History: Anxiety, Asthma, Bronchitis, COPD, Depression, Hypertension Additional Past Medical Histor: head injury; drug use, sciatica, INSOMNIA Past Surgical History: Appendectomy, Additional Past Surgical Histo: bilat knee scope Smoking Status: Current Every Day Smoker Alcohol Use: Occasionally Drug Use: Benzodiazepine, Cocaine, Opiates, Phencyclidine General Adult EDM: Chief Complaint: MULTIPLE COMPLAINTS HPI: HPI: Patient is a 39 year oldiur-oatr-tyh female arrived by EMS with a chief complaint of feeling sick x1 week. Patient states she has had nausea vomiting diarrhea sore throat body aches headache cough with congestion and feels slightly short of breath. Patient states she has a family member that tested positive for COVID. Patient admits to drinking alcohol and smoking weed and doing cocaine prior to arrival. Review of Systems: Review of Systems: Constitutional: Denies fever or chills. [] Eyes: Denies change in visual acuity. [] HENT: Positive nasal congestion or sore throat. [] Respiratory: Positive cough or shortness of breath. [] Cardiovascular: Denies chest pain or edema. [] GI: Denies abdominal pain, nausea, vomiting, bloody stools or diarrhea. [] : Denies dysuria. [] Musculoskeletal: Denies back pain or joint pain. [] Integument: Denies rash. [] Neurologic: Positive headache, Endocrine: Denies polyuria or polydipsia. [] Lymphatic: Denies swollen glands. [] Psychiatric: Denies depression or anxiety. [] Heart Score: Risk Factors: Risk Factors: DM, Current or recent (<one month) smoker, HTN, HLP, family his tory of CAD, obesity. Risk Scores: Score 0 - 3: 2.5% MACE over next 6 weeks - Discharge Home Score 4 - 6: 20.3% MACE over next 6 weeks - Admit for Clinical Observation Score 7 - 10: 72.7% MACE over next 6 weeks - Early Invasive Strategies Allergies: Allergies: Allergies Coded Allergies Type Severity Reaction Last Updated Verified Penicillins Adverse Reaction Intermediate nausea 04/26/14 Yes Physical Exam: PE: Constitutional: Well developed, well nourished, no acute distress, non-toxic appearance. [] HENT: Normocephalic, atraumatic, bilateral external ears normal, oropharynx moist, no oral exudates, nose normal. [] Eyes: PERRLA, EOMI, conjunctiva normal, no discharge. [] Neck: Normal range of motion, no tenderness, supple, no stridor. [] Cardiovascular:Heart rate regular rhythm, no murmur [] Lungs & Thorax: Bilateral breath sounds clear to auscultation [] Abdomen: Bowel sounds normal, soft, no tenderness, no masses, no pulsatile masses. [] Skin: Warm, dry, no erythema, no rash. [] Back: No tenderness, no CVA tenderness. [] Extremities: No tenderness, no cyanosis, no clubbing, ROM intact, no edema. [] Neurologic: Alert and oriented X 3, normal motor function, normal sensory function, no focal deficits noted. [Slurring her words under the influence] Psychologic: Affect normal, judgement normal, mood normal. [] Current Patient Data: Labs: Laboratory Tests Test 04/09/20 21:50 04/09/20 21:55 04/09/20 22:08 White Blood Count 6.0 x10^3/uL (4.0-11.0) Red Blood Count 3.56 x10^6/uL (3.50-5.40) Hemoglobin 12.4 g/dL (12.0-15.5) Hematocrit 36.0 % (36.0-47.0) Mean Corpuscular Volume 101 fL (79-100) H Mean Corpuscular Hemoglobin 35 pg (25-35) Mean Corpuscular Hemoglobin Concent 35 g/dL (31-37) Red Cell Distribution Width 14.3 % (11.5-14.5) Platelet Count 185 x10^3/uL (140-400) Neutrophils (%) (Auto) 58 % (31-73) Lymphocytes (%) (Auto) 31 % (24-48) Monocytes (%) (Auto) 7 % (0-9) Eosinophils (%) (Auto) 4 % (0-3) H Basophils (%) (Auto) 1 % (0-3) Neutrophils # (Auto) 3.5 x10^3/uL (1.8-7.7) Lymphocytes # (Auto) 1.8 x10^3/uL (1.0-4.8) Monocytes # (Auto) 0.4 x10^3/uL (0.0-1.1) Eosinophils # (Auto) 0.2 x10^3/uL (0.0-0.7) Basophils # (Auto) 0.0 x10^3/uL (0.0-0.2) Urine Opiates Screen Neg (NEG) Urine Methadone Screen Neg (NEG) Urine Barbiturates Neg (NEG) Urine Phencyclidine Screen Pos (NEG) Urine Amphetamine/Methamphetamine Neg (NEG) Urine Benzodiazepines Screen Neg (NEG) Urine Cocaine Screen Pos (NEG) Urine Cannabinoids Screen Neg (NEG) Urine Ethyl Alcohol Pos (NEG) POC Urine HCG, Qualitative Hcg negative (Negative) Laboratory Tests 04/09/20 21:50 Vital Signs: Vital Signs Date Time Temp Pulse Resp B/P (MAP) Pulse Ox O2 Delivery O2 Flow Rate FiO2 04/09/20 21:45 98.9 16 176/112 (133) 99 Room Air 98.9 EKG: EKG: [] Radiology/Procedures: Radiology/Procedures: [] Course & Med Decision Making: Course & Med Decision Making Pertinent Labs and Imaging studies reviewed. (See chart for details) [Work-up consisted of labs and radiologic imaging. Patient's drug screen positive for PCP cocaine alcohol level is 82. COVID test is pending. X-ray no acute abnormalities. Patient will be discharged home with prescription Zithromax. Dragon Disclaimer: Dragon Disclaimer: This electronic medical record was generated, in whole or in part, using a voice recognition dictation system. Departure Departure Impression: Primary Impression: Person under investigation for COVID-19 Additional Impressions: Viral syndrome Alcohol intoxication Substance abuse Disposition: 01 HOME, SELF-CARE Condition: STABLE Referrals: GRISELDA YOON MD (PCP) Patient Instructions: Viral Syndrome Additional Instructions: You have been tested for or diagnosed with COVID-19. It is an infection caused by a new type of coronavirus. COVID-19 will cause cold-like or mild flu symptoms in most. It can cause more severe symptoms like problems breathing in some. There is no treatment for COVID-19. The body will clear the infection over time. Self-care will help to ease discomfort. Steps to Take: Self-Care Rest as needed. Healthy habits may help you feel better. Steps include: Choose healthy foods including fruits and vegetables. Drink water throughout the day. Get plenty of sleep each night. If you smoke, try to quit. It may ease breathing. Avoid alcohol. Keep Others Healthy The virus can spread to others. Droplets are released every time you sneeze or cough. The droplets can get into the mouth, nose, or eyes of people near you and lead to infection. To lower the chances of spreading COVID-19 to others: Stay at home until your doctor has said it is safe to leave. If you tested positive this will mean staying isolated until both of the following are true: At least 7 days have passed since the start of illness. You are free of fever for at least 72 hours without the use of medicine. During this time: - Avoid public areas, events, or transportation. Do not return to work or school until your doctor has said it is safe to do so. - Call ahead if you need to go to a medical center. Let them know you may have COVID-19. It will help them guide you where to go. They may also ask you to wear a facemask when you come to the office. - If you call for emergency medical services, let them know you may have COVID- 19. While at home: - Try to avoid close contact with others. Stay about 6 feet away. - If possible, spend most of your time in a separate room from others. - Use a face mask if you will be in close contact with others such as sharing a room or vehicle. - Have someone wipe down common surfaces in the home. Use household larder cook every day on areas like doorknobs, counters, or sinks. - Cough or sneeze into a tissue. Throw the tissue away right after use. If a tissue is not available, cough or sneeze into your elbow. - Wash your hands often. Wash them after sneezing or coughing. Use soap and water and wash for at least 20 seconds. Alcohol based hand screen cleaner can be used if soap and water is not available. - Do not prepare food for others. Avoid sharing personal items like forks, spoons, or toothbrushes. - Avoid close contact with pets while you are sick. There is no evidence of the virus passing to pets. This is a safety step until more is known about this virus. Isolation can be frustrating. Social interaction can help. Keep in touch with friends and family through phone and tech options. You can still interact with others in your home, just keep a safe distance of about 6 feet. Follow-up: Your doctors office will check in with you to see if there are any changes in your health. You may be asked to keep track of symptoms to share with them. They will also let you know when you are clear to be in public again. Problems to Look Out For: Contact your doctor if your recovery is not going as you expect. Get emergency care if you have problems such as: - Trouble breathing - Nonstop chest pain or pressure - Changes in awareness, confusion, or problems waking - Lips or face have bluish color - Worsening of symptoms If you think you have an emergency, call for emergency medical services right away. As taken from [facility] Azithromycin (ZITHROMAX) 250 Mg Tablet 1 PKG PO UD, #6 TAB Prov: ANTHONY MEADOWS I DO 04/09/20 Justicifation of Admission Dx: Justifications for Admission: Justification of Admission Dx: N/A ANTHONY MEADOWS I DO Apr 09, 2020 22:35
[2020-04-09 22:37] LABS: ALBUMIN 3.3 g/dL (3.4-5.0); ALBUMIN/GLOBULIN RATIO 0.8 (1.0-1.7); TOTAL BILIRUBIN 0.3 mg/dL (0.2-1.0); TOTAL PROTEIN 7.2 g/dL (6.4-8.2)
[2020-04-09] MEDS ORDERED: AZIT250T PO (23:15)
--- NOTE | 2020-04-09 23:32 | RAD ---
CHEST AP ONLY Clinical History: Reason: cough sob / Spl. Instructions: / History: Technique: AP view of the chest was obtained at 04/09/2020 10:12 PM. Comparison: July 18, 2019. Findings: The cardiomediastinal silhouette is normal. The pulmonary vasculature is normal. The lungs and pleural margins are clear. Impression: No evidence of an acute cardiopulmonary process. Electronically signed by: Chino Magana III, MD (04/09/2020 11:29 PM) [facility]
--- NOTE | 2020-04-10 18:09 | EKG ---
[facility] [address] [place] [address] Test Date: 2020-04-09 Test Time: 21:37:39 Pat Name: HERBIE DIOR Department: Room: Gender: F Maintainer Central Office: : 1980 Requested By: ANTHONY MEADOWS Order Number: [id number] Reading MD: Measurements Intervals Spencer Rate: 105 P: 39 AR: 122 QRS: 31 QRSD: 72 T: 15 QT: 320 QTc: 427 Interpretive Statements SINUS TACHYCARDIA OTHERWISE NORMAL ECG RI6.02 No previous ECG available for comparison
--- NOTE | 2020-04-11 15:22 | NUR ---
IP: Informed pt of negative COVID test. Pt verbalized understanding.
== END 2020-04-10 00:30 | disposition home or self-care (01) ==
LOC: ER 21:20
DX: B34.9 Viral infection, unspecified (principal); Z20.828 Contact with and (suspected) exposure to other viral communicable diseases; F10.229 Alcohol dependence with intoxication, unspecified; R11.2 Nausea with vomiting, unspecified; R19.7 Diarrhea, unspecified; F41.9 Anxiety disorder, unspecified; J45.909 Unspecified asthma, uncomplicated; I10 Essential (primary) hypertension; F14.90 Cocaine use, unspecified, uncomplicated; F19.90 Other psychoactive substance use, unspecified, uncomplicated; F17.200 Nicotine dependence, unspecified, uncomplicated; Z90.89 Acquired absence of other organs; Z98.890 Other specified postprocedural states; Z88.0 Allergy status to penicillin
CPT/HCPCS: 36415; 71045; 80053; 80307; 81001; 81025; 85025; 87086; 93005; 99285; G0480; U0003

== ENCOUNTER 2020-10-15 23:05 | Emergency (ER) | payer OTHER ==
[~2020-10-15] VITALS: Ht 160 cm; Wt 99.1 kg
[~2020-10-15 23:05] MED LIST changes: +AZIT250T PO; -CLIN150C14 PO; +CLIN150C15 PO; -CLIN300C8 PO; +CLIN300C9 PO
[2020-10-15 23:10] VITALS: BP 173/120
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
[2020-10-15] MEDS ORDERED: TRAM-48 PO (23:56)
[2020-10-16] MEDS ORDERED: IBUPROFEN 200 MG TABLET. PO ONE
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
[2020-10-16] MEDS ORDERED: traMADol 50 MG TABLET PO ONE (00:30)
== END 2020-10-16 00:12 | disposition home or self-care (01) ==
LOC: ER 23:05
DX: G89.11 Acute pain due to trauma (principal); R07.81 Pleurodynia; R20.8 Other disturbances of skin sensation; J44.9 Chronic obstructive pulmonary disease, unspecified; F32.9 Major depressive disorder, single episode, unspecified; I10 Essential (primary) hypertension; F41.9 Anxiety disorder, unspecified; F17.200 Nicotine dependence, unspecified, uncomplicated; F19.90 Other psychoactive substance use, unspecified, uncomplicated; F12.90 Cannabis use, unspecified, uncomplicated; Z90.89 Acquired absence of other organs; Z88.0 Allergy status to penicillin; Z98.890 Other specified postprocedural states; V49.9XXA Car occupant (driver) (passenger) injured in unspecified traffic accident, initial encounter; Y93.89 Activity, other specified; Y92.89 Other specified places as the place of occurrence of the external cause; Y99.8 Other external cause status
CPT/HCPCS: 71101; 99284